=== PATIENT | male | born 1990 | race African-American/Black ===

== ENCOUNTER 2016-04-24 07:56 | Emergency (ER) ==
--- NOTE | 2016-04-24 10:17 | PROVIDER DOCUMENTATION ---
HPI-Musculoskeletal Pain/Inj - GENERAL Chief Complaint: Extremity Injury Stated Complaint: LEG INJURY Time Seen by Provider: 04/24/16 10:05 Source: patient - HX OF PRESENT ILLNESS-MUSKULOSKELTAL Nature of Presenting Problem: Patient sleeping in bed; had to wake patient up. He states that he fell off of a 2 ft brick wall onto concrete and injured his left knee and miles at 0600 today. He states that he has numbness/tingling radiating into foot and up into thigh. He is able to ambulate on left leg. Quality of Pain: reports: aching, throbbing Severity in ED: moderate Onset/Duration: 4-6 hours ago Timing: still present Modifying Factors: improves with: palpation (worsens) Any recent injury?: Yes Similar Symptoms Previously?: No Recently seen or treated by another doctor?: No - FALL INJURY Location of Pain/Injury: reports: lower extremity Pain Radiation: reports: feet (left foot), legs (lower) (left thigh) Reason for Fall: reports: lost balance Symptoms prior to fall:: reports: none Loss of Consciousness: no loss of consciousness Injury Associated Symptoms: reports: denies symptoms Review of Systems - Adult - REVIEW OF SYSTEMS - ADULT Constitutional: reports: no symptoms reported Eyes: reports: no symptoms reported Ears, Nose, Mouth & Throat: reports: no symptoms reported Cardiovascular: reports: no symptoms reported Respiratory: reports: no symptoms reported Gastrointestinal: reports: no symptoms reported Genitourinary: reports: no symptoms reported Musculoskeletal: reports: see HPI, bone pain Integumentary: reports: no symptoms reported Neurological: reports: see HPI, numbness Psychiatric: reports: no symptoms reported Endocrine: reports: no symptoms reported Hematologic/Lymphatic: reports: no symptoms reported Allergic/Immunologic: reports: no symptoms reported All Other Systems: Reviewed and Negative Past History - Adult - PAST MEDICAL HISTORY-ADULT Review of Records: reports: Old Records Reviewed, Nursing Assessment Review, Medications Reviewed, Social history reviewed & non-contributory. Major Childhood Illnesses: reports: denies history Cardiovascular: reports: denies history Respiratory: reports: asthma Gastrointestinal: reports: GERD Obstetrical/Gynecological: reports: denies history Genitourinary: reports: denies history Musculoskeletal: reports: denies history Neurological: reports: denies history Endocrine/Immune: reports: anemia Other Conditions: reports: denies history - PRIOR SURGERIES/PROCEDURES Surgical/Procedure History: reports: none - PRIOR HOSPITALIZATIONS Prior Hospitalizations: reports: none - IMMUNIZATION STATUS Childhood Immunizations: See Nurse Assessment Flu Vaccine: See Nurse Assessment - FAMILY HISTORY Family History: reviewed, not pertinent - SOCIAL HISTORY Smoking: denies, non-smoker Substance Use: denies Living Situation: family Physical Exam-Injury Related - Physical Exam-Injury Related Initial Vital Signs Reviewed: Yes General Appearance: appears well, alert, no apparent distress Eyes: PERRL/EOMI, pink conjunctivae Head, Ears, Nose, Mouth & Throat: normocephalic/atraumatic Respiratory: no respiratory distress Peripheral Pulses: dorsalis-pedis (L): 2+ Extremity: normal gait, no pedal edema, tenderness (to left knee, miles, and ankle). negative: deformity Integumentary: abrasion (small about the size of a nickel over left knee) Neurologic: grossly normal Psych/Mental Status: normal mood/affect, normal thought content, normal thought process, oriented x 3 - Glascow Coma Score Best Eye Response (Nciolas): (4) open spontaneously Best Verbal Response (Nicolas): (5) oriented Best Motor Response (Nicolas): (6) obeys commands Nicolas Total: 15 Progress - PLAN OF CARE/RESULTS Progress/Plan/Lab Results: 1110-Discussed x-ray results/dx/tx/discharge and follow up instructions with patient; he verbalized understanding. Orders Category Date Time Status Wound Care DIRECTED Care 04/24/16 10:20 Active ANKLE COMPLETE LEFT [RAD] Stat Exams 04/24/16 10:09 Taken KNEE 3 VIEWS LEFT [RAD] Stat Exams 04/24/16 10:09 Draft LOWER LEG-LEFT [RAD] Stat Exams 04/24/16 10:09 Draft Bacitracin Ointment Med 04/24/16 10:20 Discontinued See Dose Instructions TOP NOW ONE Vital Signs - 24 hr 04/24/16 08:08 Temperature 98 F Pulse Rate 66 Respiratory 18 Rate Blood Pressure 141/72 O2 Sat by Pulse 100 Oximetry Orders Category Date Time Status Srikanth Wrap Application DIRECTED Care 04/24/16 11:14 Active Wound Care DIRECTED Care 04/24/16 10:20 Active ANKLE COMPLETE LEFT [RAD] Stat Exams 04/24/16 10:09 Taken KNEE 3 VIEWS LEFT [RAD] Stat Exams 04/24/16 10:09 Draft LOWER LEG-LEFT [RAD] Stat Exams 04/24/16 10:09 Draft Bacitracin Ointment Med 04/24/16 10:20 Discontinued See Dose Instructions TOP NOW ONE - XRAY 1 XRAY: Left XRAY Study: Knee Impression: Abnormal (possible effusion but no fracture) XRAY Interpretation: Interpreted by Dr. Parekh 2 XRAY: Left XRAY Study: Tibia/Fibula, Ankle Impression: Normal (no fracture) XRAY Interpretation: Interpreted by Dr. Parekh Departure - Departure Time of Disposition Order: 11:14 DIAGNOSIS: Knee effusion, left Fall Qualifiers: Encounter type: initial encounter Qualified Code(s): W19.XXXA - Unspecified fall, initial encounter Contusion of left knee and lower leg Qualifiers: Encounter type: initial encounter Qualified Code(s): S80.02XA - Contusion of left knee, initial encounter; S80.12XA - Contusion of left lower leg, initial encounter Left ankle sprain Qualifiers: Encounter type: initial encounter Involved ligament of ankle: unspecified ligament Qualified Code(s): S93.402A - Sprain of unspecified ligament of left ankle, initial encounter Disposition: HOME 01 Certified Medical Emergency: Emergent Condition: Good Additional Instructions: Follow up with primary care doctor. Elevate and apply ice for 20 minutes several times a day. Take medications as prescribed. ED Follow Up Instructions: You have been treated by a care provider in the Emergency Department. These instructions are being provided to you so you can have an understanding of how to care for yourself upon discharge. Upon discharge from the Emergency Department, you are responsible for making arrangements for follow-up care by a physician of your choice. Take all prescribed medications as directed. Return to the Emergency Department immediately for any new or worsening symptoms. You may call the Physician Referral phone number at [phone] to obtain a list of Physicians who are taking new patients. Prescriptions: Naproxen 500 mg PO BID PRN PRN #20 tablet PRN Reason: Pain Methocarbamol [Robaxin] 500 mg PO BID PRN #20 tablet PRN Reason: Pain Referrals: None,PCP [Primary Care Provider] - Attestation - Physician/ BERNICE Attestation Patient care was provided by Advanced Practice Provider:: Yes Advanced Practice Provider:: Ayla Moore Advanced Practice Provider documentation review:: The Mid-level provider documentation, treatment plan and medical decision making was reviewed by the physician who agrees with all treatment and medical decision making by the MLP.
[2016-04-24] MEDS ORDERED: BACITRACIN OINTMENT TOP ONE (10:20)
--- NOTE | 2016-04-24 11:00 | Diag Imaging Result Document ---
PROCEDURE NAME: KNEE 3 VIEWS LEFT - 04/24/2016 LEFT KNEE, 3 VIEWS: COMPARISON: None. FINDINGS: There is probably a moderately large suprapatellar joint effusion. No fracture or dislocation. Impression: Possible joint effusion but no fracture. [facility]
--- NOTE | 2016-04-24 11:01 | Diag Imaging Result Document ---
PROCEDURE NAME: LOWER LEG-LEFT - 04/24/2016 LEFT LOWER LEG, 2 VIEWS: COMPARISON: None. FINDINGS: Bones are intact and normally aligned. Joint spaces and soft tissues are clear. IMPRESSION: Negative exam.
--- NOTE | 2016-04-24 11:15 | Diag Imaging Result Document ---
PROCEDURE NAME: ANKLE COMPLETE LEFT - 04/24/2016 LEFT ANKLE, 3 VIEWS: COMPARISON: None. FINDINGS: There is some possible soft tissue swelling at the anterior ankle. No fracture or subluxation. Joint spaces are clear. IMPRESSION: Anterior ankle soft tissue swelling but no fracture.
[2016-04-24 11:23] VITALS: BP 138/92
== END 2016-04-24 11:22 | disposition home or self-care (01) ==
LOC: P.ED 07:56
DX: S80.02XA Contusion of left knee, initial encounter (principal); S80.12XA Contusion of left lower leg, initial encounter; S93.402A Sprain of unspecified ligament of left ankle, initial encounter; S80.212A Abrasion, left knee, initial encounter; R20.0 Anesthesia of skin; R20.2 Paresthesia of skin; K21.9 Gastro-esophageal reflux disease without esophagitis; M25.462 Effusion, left knee; W17.89XA Other fall from one level to another, initial encounter